=== PATIENT | male | born 1965 | race Caucasian/White ===

== ENCOUNTER → 2017-05-15 | Outpatient (CLI) | payer OTHER ==
[~2017-05-15] VITALS: Ht 177.8 cm; Wt 99.7 kg
[~2017-05-15] MED LIST: AMARYL2 M1 PO; ASPIR 8181 MG PO; ATORVASTATIN CA40 MG PO; COZAAR 50 MG TA50 M2 PO; CRESTOR40 MG PO; FLEXERIL PO; HYDROCODONE-AP1 EAC6 PO; HYDROCODONE-APA1 TA1 PO; IBUPROFEN 400400 M1; IRBESARTAN-HCT1 EAC1 PO; LISINOPRIL20 MG PO; LOFIBRA160 MG PO; MELOXICAM7.5 MG PO; METFORMIN HCL500 MG PO; NABUMETONE 750750 M1 PO; NEURONTIN 300300 M1 PO; NORCO 5-325 TA1 EACH PO; NORVASC2.5 MG PO; PIOGLITAZONE15 MG; TRAMADOL 50 MG50 MG PO; VASCEPA1 GM PO; VOLTAREN GEL 1100 G2 TOP
--- NOTE | ~2017-05-15 | HPC ---
[facility] [place] [address] PAIN MANAGEMENT CONSULTATION Name: PRUDENCE LIRAN Room #: REG RAULMack Healy.#: [id number] Admission: 05/15/17 Attend Phys: Miles Romero DO Discharge: Date of : 65 Report #: [id number] THIS REPORT FOR: //name// CC: Dg Romero HISTORY OF PRESENT ILLNESS: The patient is a pleasant 51-year-old gentleman, prior seen back in 11/2015, nearly a year and a half ago. Lumbar radiculopathy well treated with epidural injection. Returns to the pain clinic today. He had actually canceled his neurosurgical consult back in 2015 because symptoms were so well improved following the epidural injections. But notes pain has begun to recur, subjective weakness in the right leg, ongoing pain in the low back with some new pain in the right shoulder. Notes that he had moved at the end of 2016. With increased activity, packing, moving furniture and unpacking, pain has recurred. He notes pain is problematic, rating it a 7 on a VAS. Does not have a history of arthritis. BMI is 31.5 kilograms per meter squared. Blood pressure is modestly elevated at 160/99, pulse 94. He has not fallen in the last 3 months. He is hypertensive. Medication list was reconciled today. Moderate risk for opiate use, functional assessment tool is 53/70. He has tried in the past 5 months of physical therapy including walking and cycling, nonsteroidal anti-inflammatory medications and p.o. steroids with little efficacy. Again, symptoms have recurred with a right lumbar radicular symptoms predominating. PHYSICAL EXAMINATION: VITAL SIGNS: Show blood pressure 160/99, pulse 94, respiratory rate 14. MUSCULOSKELETAL: Rises from chair using armrest, modestly antalgic gait, positive straight leg raise at 30 degrees on the right. Slight decreased right hip flexion, lower extremity extension strength. IMAGING: X-rays of the lumbar spine somewhat dated from 2016 had shown no dramatic findings; however, MRI of the lumbar spine from 2016 noted moderate to severe AP narrowing at L4-L5 due to facet degenerative changes and ligamentum flavum hypertrophy. ASSESSMENT: Symptomatic lumbar radiculopathy by clinical exam and history, recurrent symptoms. RECOMMENDATIONS: We will seek authorization for epidural injection under fluoroscopy at next visit, right of midline L4-L5. Continue NSAID use, range of motion and stretching. The patient was discharged in good and stable condition after a prolonged visit, [place] [address] PAIN MANAGEMENT CONSULTATION Name: ARSALAN LIRA Room #: REG CLMack Maria Teresa#: [id number] Admission: 05/15/17 Attend Phys: Miles Romero DO Discharge: Date of : 65 Report #: [id number] greater than 30 minutes was spent reviewing medical history, interval history, physical exam, diagnostic studies and discussing therapeutic options. <ELECTRONICALLY SIGNED> By: Miles Romero DO 05/19/17 0715 0956 24 Miles Romero DO /nt
[2017-05-15 13:30] VITALS: BP 162/99
== END ==
LOC: PAIN 06:52
DX: M54.16 Radiculopathy, lumbar region (principal)

== ENCOUNTER → 2017-06-20 | Outpatient (CLI) | payer OTHER ==
[~2017-06-20] VITALS: Ht 177.8 cm; Wt 100.2 kg
--- NOTE | ~2017-06-20 | HPC ---
[facility] [address] [address] [place] [address] PAIN MANAGEMENT CONSULTATION Name: PRUDENCE LIRAN Room #: REG [facility] Monet.#: [id number] Admission: 06/20/17 Attend Phys: Miles Romero DO Discharge: Date of : 65 Report #: [id number] THIS REPORT FOR: //name// CC: Dg Romero The patient is a 51-year-old gentleman, prior seen for symptomatic lumbar radiculopathy, though he had component of both cervical and lumbar radicular symptoms at that time. He has had 2 lumbar epidural injections back in 2015. He was seen at last visit on 05/15/2017 after a 2-year hiatus. He returned with ongoing cervical and lumbar radicular symptoms. The lumbar symptoms were predominant at that time. We elected to move forward with authorization for epidural injection under fluoroscopy. In the interval since I last saw him, the back pain has somewhat gotten better with nonsteroidal anti-inflammatory medication (meloxicam). He notes he did follow up with Dr. Gallardo who has sent him back with a new consult for cervical radicular symptoms in the right arm. The patient notes pain in the neck, shoulder and right arm while present for greater than 6-8 weeks, it has been getting worse over the past several weeks. He has paresthesia going into the thumb and index finger, loss of sensation in the C6 distribution. PHYSICAL EXAMINATION: Shows cervical range of motion full with modestly positive Lhermitte's to the right. Upper extremity strength is generally preserved, though slight decreased right biceps strength compared to the left. Deep tendon reflexes show diminished biceps and brachial radialis in the right compared to the left. Tinel's is equivocal on the right and left. Hand grasp is symmetric, but subjective paresthesias noted in his thumb and index finger with loss of 2-point discrimination. DIAGNOSTIC STUDIES: Include MRI of the cervical spine from 06/10/2017, notes C5-C6 to have right paracentral disk protrusion extending inferior toward the right lateral recess suggesting small extrusion causing indentation and flattening of the ventral cord. C6-C7 similarly notes asymmetric right paracentral and lateral disk protrusion causing CSF effacement, moderate central canal stenosis and ventral cord flattening. Physical exam and MRI are concordant with right C6 radiculopathy. The patient has failed conservative therapy including meloxicam. His symptoms have been present for greater than 6 weeks. He has failed physical therapy. RECOMMENDATION: 1. We will seek authorization for cervical epidural injection under fluoroscopy at earliest possible date. [address] [address] PAIN MANAGEMENT CONSULTATION Name: ARSALAN LIRA Room #: REG [facility] Maria Teresa#: [id number] Admission: 06/20/17 Attend Phys: Miles Romero DO Discharge: Date of : 65 Report #: [id number] 2. Continue meloxicam. 3. Continue physical therapy. <ELECTRONICALLY SIGNED> By: Miles Romero DO 06/26/17937 7 1113 Miles Romero DO /isabel
[2017-06-20 09:07] VITALS: BP 152/98
== END ==
LOC: PAIN 05-26 08:31
DX: M54.16 Radiculopathy, lumbar region (principal); M54.12 Radiculopathy, cervical region

== ENCOUNTER → 2017-06-26 | Outpatient (CLI) | payer OTHER ==
[~2017-06-26] VITALS: Ht 177.8 cm; Wt 99.8 kg
--- NOTE | ~2017-06-26 | HPC ---
[facility] [place] [address] PAIN MANAGEMENT CONSULTATION Name: PRUDENCE LIRAN [facility] [id number] Admission: 06/26/17 Attend Phys: Miles Romero DO Discharge: Date of : 65 Report #: [id number] THIS REPORT FOR: //name// CC: Dg Romero DATE OF SERVICE: 06/26/2017 The patient is a pleasant 51-year-old gentleman, prior seen in the pain clinic 06/20/2017, diagnosed with symptomatic cervical radiculopathy, sought authorization for epidural injection under fluoroscopy. Returns to pain clinic today noting pain continues to be problematic. He wishes to proceed with cervical epidural injection under fluoroscopy. Rates pain a 5-6 on a VAS. Pain is primarily neck, right shoulder and arm. ASSESSMENT: Symptomatic cervical radiculopathy. PROCEDURE: Cervical epidural injection under fluoroscopy. PROCEDURE NOTE: After written and informed consent was obtained including risk of dural puncture, spinal cord trauma, paralysis and increased pain, the patient was taken to the fluoroscopy suite and placed in the prone position, with appropriate abdominal bolstering, neck was flexed, palms under the thighs. Skin was prepped with ChloraPrep. Sterile draping was applied. Skin wheal with 1% Xylocaine was raised. A 22-gauge 3-1/2 inch epidural Tuohy needle was placed via a midline approach at the C7-T1 interspace, advanced under biplanar fluoroscopy using continuous loss of resistance. With appropriate loss of resistance at the expected depth on lateral view, the glass loss of resistance syringe was disconnected. A low volume extension tubing was connected to the needle and a 5 mL syringe. Negative aspiration for cerebrospinal fluid or blood was noted. A 1 mL of Omnipaque was injected which showed spread within the epidural space on biplanar fluoroscopy. This was followed with 80 mg of triamcinolone plus 1 mL of 1.5% preservative Xylocaine. Needle was withdrawn to the interspinous ligament, 0.5 mL of Xylocaine was used to flush the needle. The needle was then completely withdrawn. The area was cleansed. Band-Aid was applied. The patient was allowed to move off the procedure table and ambulated to the recovery room, monitored for an appropriate period of time, discharged in good and stable condition. Follow up in 3 weeks for reevaluation. <ELECTRONICALLY SIGNED> By: Miles Romero DO 07/02/17 0744 1218 1302 Miles Romero DO /nt
[2017-06-26 10:03] VITALS: BP 181/114
== END | disposition home or self-care (01) ==
LOC: PAIN 07:02
DX: M54.12 Radiculopathy, cervical region (principal); G89.29 Other chronic pain; F17.210 Nicotine dependence, cigarettes, uncomplicated; Z79.82 Long term (current) use of aspirin; Z79.899 Other long term (current) drug therapy

== ENCOUNTER → 2017-07-17 | Outpatient (CLI) | payer OTHER ==
[~2017-07-17] VITALS: Ht 177.8 cm; Wt 97.7 kg
--- NOTE | ~2017-07-17 | HPC ---
[place] [address] PAIN MANAGEMENT CONSULTATION Name: PRUDENCE LIRAN [id number] Admission: 07/17/17 Attend Phys: Miles Romero DO Discharge: Date of : 65 Report #: [id number] THIS REPORT FOR: //name// CC: Dg Romero DATE OF SERVICE: 07/17/2017 The patient is a 51-year-old gentleman, prior seen 06/26/2017. We did a single cervical epidural injection at that time. Returns to pain clinic today noting that the injection afforded good relief, specifically 75% relief cervical radicular symptoms, still getting relief, but does complain of pain in the right triceps and axilla, tender hyperpathic sensation. He states it feels like there is an episodic dagger stabbing into his shoulder. He also incidentally notes some slight right hip aching sensation. He rates his pain a 3-4 on VAS. PHYSICAL EXAMINATION: Shows 51-year-old gentleman, BMI is 30.9 kilograms per meter squared. Blood pressure is a little bit elevated at 159/106, pulse 99, respirations are 18. Subjective pain score is 3-4 on VAS. Cervical range of motion is modestly limited. Positive Lhermitte's with symptoms radiating to the right shoulder, a slight decreased right triceps strength to objective exam. ASSESSMENT: Symptomatic cervical radiculopathy by clinical exam and history, good incremental improvement following single injection, but ongoing symptoms that are interfering with function. History of lumbar radiculopathy. RECOMMENDATION: We will seek authorization for repeat cervical epidural injection next visit. Continue range of motion exercise as discussed. <ELECTRONICALLY SIGNED> By: Miles Romero DO 07/21/17 0756 1524 1811 Miles Romero DO /nt
[2017-07-17 10:53] VITALS: BP 159/106
== END ==
LOC: PAIN 07:25
DX: M54.12 Radiculopathy, cervical region (principal); M54.16 Radiculopathy, lumbar region

== ENCOUNTER → 2018-05-20 | Outpatient (CLI) | payer OTHER ==
[~2018-05-20] VITALS: Ht 177.8 cm; Wt 95.3 kg
[~2018-05-20] MED LIST changes: +AMITRIPTYLINE H10 M3 PO; +MEDROLDOSEPACK PO
[2018-05-20 12:45] VITALS: BP 210/140
--- NOTE | 2018-05-20 12:46 | NUR ---
Pain Clinic Assessment: 1. History of Osteoarthritis: Not Applicable History of Rheumatoid Arthritis: Not Applicable 2. Height: 5 ft. 10 in. 177.8 cm. Weight: 210.0 lb. oz. 95.256 kg. Patient's BMI: 30.1 3. Vital Signs: BP: 210/140 Pulse: 97 Resp: 18 Temp: 02 Sat: 97 ECG Mon: 4. Pain Intensity: 8 5. Fall Risk: Dizziness: N Needs help standing or walking: N Fallen in the last 3 months: N Fall risk comments: 6. Patient on Blood Thinner: None 7. History of Hypertension: Y 8. Opioid Therapy greater than 6 weeks: N Opiate Contract Signed: 9. Risk Assessment Tool Provided: MODERATE RISK 07/19 10. Functional Assessment Tool: 11. Recreational Drug Use: Never Drug Type: Tobacco Use: Current Every Day Smoker Tobacco Type: Amount or Packs/day: How Many Years: Alcohol Use: Yes Frequency: Daily Quant: 3-4 MIX DRINKS
--- NOTE | 2018-05-22 16:49 | HPC ---
[facility] [address] [address] PAIN MANAGEMENT CONSULTATION Name: ARSALAN LIRA Room #: REG FROY Maria Teresa#: [id number] Admission: 05/20/18 Attend Phys: Jermain Zaman MD Discharge: Date of : 65 Report #: [id number] THIS REPORT FOR: //name// CC: Dg Zaman DATE OF SERVICE: 05/20/2018 CHIEF COMPLAINT: Neck pain with numbness and weakness in my left hand. FOLLOWUP HISTORY: The patient is a 52-year-old gentleman who has been followed in the Pain Clinic by Dr. Miles Romero. He has been treated for cervical radiculopathy. This is my first visit with the patient. He has been having pain, which is quite problematic. Initially, it was on his right side. He has noticed that the right-sided pain continues to be problematic, but that the left side is more problematic. He notes some weakness in his left hand. He describes it as some "paralysis in his hand." He is able to use it. Notes that it is weak and is unable to hold items. He has been evaluated by his primary doctors. States that he has a right lung, but is not fully expanded. He is being "worked up for this problem." States that he does smoke smokeless tobacco. He has been told that he has some spinal stenosis in the neck area. He does have a history of hypertension. He has not been taking his medications because of cost concerns. His blood pressure has been elevated today. ALLERGIES: No known drug allergies. CURRENT MEDICATIONS: Voltaren gel to the upper extremity four times daily, Meloxicam 7.5 mg b.i.d., amlodipine 22.5 mg, Crestor 40 mg, irbesartan/hydrochlorothiazide 300/12.5, Vascepa 1 gram, tramadol 50 mg, metformin 500 mg b.i.d., losartan 100 mg total, Amaryl 2 grams, Neurontin 300 mg b.i.d., fenofibrate 160 mg, and aspirin 81 mg. PAST MEDICAL HISTORY: Diabetes, hypertension, stomach problems, and ulcers. PAST SURGICAL HISTORY: Foot surgery, colon, and fissure. SOCIAL HISTORY: The patient worked as a property accountant. He is working at this juncture. REVIEW OF SYSTEMS: Generally noted are fatigue, night sweats, decreased appetite, eye disease, heart trouble, chest pain, palpitations, shortness of breath when lying down, loss of appetite, bowel movements, wakens at night to urinate, rash, itching, lightheadedness/dizziness, numbness/tingling sensation, nervousness, depression, and insomnia. LABORATORY DATA: MRI of the cervical spine dated 03/24/2018: [place] [address] PAIN MANAGEMENT CONSULTATION Name: ARSALAN LIRA Room #: REG CLI Maria Eugenia#: [id number] Admission: 05/20/18 Attend Phys: Jermain Zaman MD Discharge: Date of : 65 Report #: [id number] 1. C3-C4, there is minimal uncinate process spurring and mild facet hypertrophy. There is minimal foraminal narrowing. There is a tiny central protrusion measuring 0.6 cm at the base and 0.2 cm at the height. The thecal sac is 1.2 cm AP. 2. C4-C5, there is a disk osteophyte complex with also an uncinate process spurring. There is facet hypertrophy, which is greater on the left. There is [id number] left and mild right foraminal narrowing. The thecal sac is 1.2 cm. 3. C5-C6, there is a disk osteophyte complex, and uncinate process spurring. There is facet hypertrophy, which is greater on the left. There is mild canal stenosis. There is at least moderate bilateral foraminal narrowing. The thecal sac is 0.9 cm AP. 4. C6-C7, there is a disk osteophyte complex with uncinate process spurring. There is a high grade right foraminal narrowing, unclear if it is secondary to a prominent spur or a disk herniation. Herniation favored. There is a canal stenosis and moderate left foraminal narrowing. Thecal sac is 0.8 cm AP. 5. C7-T1, there is facet hypertrophy with minimal foraminal narrowing. Thecal sac is 1.2. PAIN CLINIC ASSESSMENT AND PQRS: 1. History of osteoarthritis. The patient is not being treated for osteoarthritis or rheumatoid arthritis. 2. Height 5 feet 10 inches, weight 210 pounds, BMI is 30.1. 3. Vital signs: Blood pressure 210/140, pulse 97, respiratory rate 18, room air saturation is 97%. 4. Pain intensity 11/21. 5. Fall risk. The patient has not fallen in the last 3 months. 6. Blood thinner. The patient is not on a blood thinning medication. 7. Hypertension. The patient is being treated for hypertension, but has not taken his medication for a number of days. 8. Opioid therapy greater than 6 weeks. 9. Risk assessment tool, moderate risk 07/19. 10. Functional assessment tool. 11. Recreational drug use. The patient denies use of recreational drugs. 12. Smoker. The patient is a current smoker and smokes cigarettes. He states that he is smoking smokeless cigarettes. 13. Alcohol. The patient drinks daily 3-4 mixed drinks. PHYSICAL EXAMINATION: GENERAL: The patient is a well-developed, well-nourished white male. Appears his stated age. He is alert and oriented x 3. Affect is appropriate. Speech is fluent. HEENT: Normocephalic, atraumatic. Extraocular eye muscles intact. Sclerae nonicteric. Mucous membranes are moist. NECK: Without adenopathy or JVD. The patient has pain and discomfort in the left arm. Pain radiating down into the left arm down into his hands with [facility] [address] [place] [address] PAIN MANAGEMENT CONSULTATION Name: SORAYAARSALAN Room #: REG [facility] [id number] Admission: 05/20/18 Attend Phys: Jermain Zaman MD Discharge: Date of : 65 Report #: [id number] numbness and tingling involving his fingers in approximately the C6-C7 distribution. Notes some pain in the little fingers on the left side as well. Feels that there is weakness. Unable to grasp and hold things as he could in the past. Notes also that he has pain and discomfort on the right side. This was problematic and is less so than on the left. He still notes pain and discomfort. CHEST: Generally clear to auscultation. HEART: Regular rate. S1, S2. ABDOMEN: Nontender. Bowel sounds present. EXTREMITIES: Lower extremity muscle strength is judged to be 5/5 for the major muscle groups. The patient is without significant scoliosis, kyphosis, or lordosis. IMPRESSION: 1. Cervical radiculopathy involving the left as well as the right arm. 2. Markedly elevated blood pressures. 3. Gastrointestinal problems with history of ulcers. 4. Diabetes. RECOMMENDATIONS: We discussed treatment options with the patient. The patient's blood pressure was elevated. We took it a number of times. The measure of 210/140 was noted. Previous blood pressures were 159/106. Because of the patient's significant elevated blood pressure, we would recommend that he go to the Emergency Room or see his primary physician. The patient states that he has quite a number of ____. He is reluctant to go to the Emergency Room secondary to the significant cost. We explained to the patient that his blood pressures were dangerously high. Possibility of stroke or heart problems could result. States that he has not been taking his medications. He ran out. States that he will go and get his medications today, start take his medications. He states that he has a blood pressure cuff at home. I reminded the patient that his blood pressure should stay elevated, he should seek medical treatment with his primary or go to the Emergency Room, states that he would. He complains of some pain and discomfort in his neck, shoulders with numbness and weakness. We will provide the patient with a Medrol Dosepak. He will take this in the interim. Hopefully, he noted some improvement in his pain and have less discomfort. The patient will also try amitriptyline 10 mg at bedtime and increase this as tolerated. Hopefully, the patient will notice some benefit from this with decreased pain, decreased numbness, tingling and he will return in the near future for a cervical epidural steroid injection. The patient again was reminded of the urgency to get his blood pressure under control because of the untoward problems with his heart or stroke that might occur. The patient will also monitor his blood sugars. Given the Medrol Dosepak, they can increase the amount of his baseline blood sugars. [facility] [address] [place] [address] PAIN MANAGEMENT CONSULTATION Name: ARSALAN LIRA Room #: REG FROY Morel#: [id number] Admission: 05/20/18 Attend Phys: Jermain Zaman MD Discharge: Date of : 65 Report #: [id number] We would like to thank you for letting us participate in his care. We hope he continues to improve. <ELECTRONICALLY SIGNED> By: Jermain Zaman MD 05/22/18 1649 1647 0221 Jermain Zaman MD /nt
== END ==
LOC: PAIN 07:20
DX: M54.12 Radiculopathy, cervical region (principal); E11.9 Type 2 diabetes mellitus without complications; R03.0 Elevated blood-pressure reading, without diagnosis of hypertension; K21.9 Gastro-esophageal reflux disease without esophagitis; Z79.899 Other long term (current) drug therapy

== ENCOUNTER → 2018-06-12 | Outpatient (CLI) | payer OTHER ==
[~2018-06-12] VITALS: Ht 177.8 cm; Wt 95.7 kg
[~2018-06-12] MED LIST changes: +ULTRAM 50MG TAB50 MG PO
--- NOTE | ~2018-06-12 | HPC ---
[facility] [address] [place] [address] PAIN MANAGEMENT CONSULTATION Name: ARSALAN LIRA [id number] Admission: 06/12/18 ������������������ Attend Phys: Jermain Zaman MD Discharge: ������������������ Date of : 65 Report #: [id number] THIS REPORT FOR: //name// CC: Dg Zaman DATE OF SERVICE: 06/12/2018 CHIEF COMPLAINT: Neck pain that goes down into the left shoulder and down the left arm. FOLLOWUP HISTORY: The patient is a 52-year-old gentleman who has been seen in the Pain Clinic because of cervical radiculopathy. He has undergone epidural steroid injections and gleaned benefits from these. He returns today indicating that the last injection was beneficial. He is still having some discomfort and rates it as a 7/10. He has been working on his blood pressure to get it down and maintain at reasonable level. He has noted worsening of his pain over the last 4-5 months. Notes tenderness in this area. Pain is exacerbated by moving his neck and using his arms. He has returned today for cervical epidural steroid injection. ALLERGIES: No known drug allergies. CURRENT MEDICATIONS: Voltaren gel to the upper extremities 4 times daily, Meloxicam 7.5 mg b.i.d., amlodipine 22.5 mg, Crestor 40 mg, irbesartan/hydrochlorothiazide 300/12.5, Vascepa 1 g, tramadol 50 mg, metformin 500 mg b.i.d., losartan 100 mg, Amaryl 2 grams, Neurontin 300 mg b.i.d., fenofibrate 160 mg, aspirin 81 mg. PAIN CLINIC ASSESSMENT/PQRS: 1. The patient is not being treated for osteoarthritis or rheumatoid arthritis. 2. Height 5 feet 10 inches, weight 211 pounds, BMI is 30. 3. Vital signs: Blood pressure 148/98, pulse 89, respiratory rate 16, room air saturation 97%. 4. Pain intensity 10/21. 5. Fall risk. The patient has not fallen in the last 3 months. 6. Blood thinner: The patient is not on blood thinning medication. 7. Hypertension. The patient is being treated for hypertension. 8. Opioids greater than 6 weeks. 9. Risk assessment tool, moderate reuse 07/19 for opioid use. 10. Functional assessment tool . 11. Recreational drug use. The patient denies use of recreational drugs. 12. Tobacco: The patient currently smokes tobacco or chewing tobacco. Again, we discussed the risks and benefits of tobacco use, especially chewing possibility of cancer. The patient drinks about 3 alcoholic beverages daily. [address] [address] PAIN MANAGEMENT CONSULTATION Name: ARSALAN LIRA [facility] [id number] Admission: 06/12/18 ������������������ Attend Phys: Jermain Zaman MD Discharge: ������������������ Date of : 65 Report #: [id number] PHYSICAL EXAMINATION: GENERAL: The patient is a well-developed, well-nourished white male. Appears his stated age. He is alert and oriented. His affect is appropriate. Speech is fluent. HEENT: Normocephalic, atraumatic. Extraocular eye muscles intact. Sclerae nonicteric. Mucous membranes moist. NECK: Without adenopathy or JVD. The patient has pain and discomfort in the left arm with pain that is radiating down to his left arm and involving his hands with numbness, tingling involving his fingers. This is approximately at the C6-C7 dermatomal distribution. The patient also perceives some weakness. He is unable to grasp and hold things as he has in the past. CHEST: Clear to auscultation without her bronchi. HEART: Regular rate. S1, S2. ABDOMEN: Nontender. Bowel sounds present. EXTREMITIES: Upper extremity muscle strength is judged to be 5-/5 on the right and 4/5 on the left. The patient without significant scoliosis, kyphosis or lordosis. IMPRESSION: 1. Cervical radiculopathy involving the left as well as the right arm. 2. Marked elevated blood pressure is stable today. 3. Gastroesophageal problems with history of ulcers. 4. Diabetes. RECOMMENDATIONS: We discussed treatment options with the patient. Risks and benefits of an epidural steroid injection using the cervical probes were discussed. They include but are not limited to infection, worsening pain, no improvement in pain, spinals damage with nerve paralysis. The patient elects to proceed. PROCEDURE NOTE: The patient was taken to the procedure area. He was assisted in getting on the examination table. His back was sterilely prepped at the C7-T1 interspace. This area had been sterilely prepped with Betadine solution. Fluoroscopy machine was used for anterior as well as lateral viewing. The patient's neck was sterilely prepped with Betadine. It was allowed to dry. Fluoroscopy at the C7-T1 interspace using a left paraspinous approach was undertaken. A 0.25% bupivacaine was infiltrated. A 17-gauge Tuohy with loss of resistance technique was used to gain access to the epidural space. There was no CSF, heme or paresthesia. Total of 80 mg Depo-Medrol, 40 mg triamcinolone and 2 mL of 0.25% bupivacaine was injected. The patient tolerated the procedure well. A total of 13 seconds fluoro time was used. The patient's pain was 6 at the time of discharge. He will follow up in the future as needed. A script for his medications of tramadol 90 mg 1 p.o. q.4-6h. has been written. We would [facility] [address] [place] [address] PAIN MANAGEMENT CONSULTATION Name: ARSALAN LIRA Room #: REG [facility].#: [id number] Admission: 06/12/18 ������������������ Attend Phys: Jermain Zaman MD Discharge: ������������������ Date of : 65 Report #: [id number] like to thank you for letting us participate in his care. We hope he continues to improve. ��������������������������������������������� ���������������������������������������� By: ��������������������������������������������� [id number] Jermain Zaman MD /nt
[2018-06-12 10:12] VITALS: BP 148/98
--- NOTE | 2018-06-12 10:20 | NUR ---
Pain Clinic Assessment: 1. History of Osteoarthritis: Not Applicable History of Rheumatoid Arthritis: Not Applicable 2. Height: 5 ft. 10 in. 177.8 cm. Weight: 211.0 lb. oz. 95.709 kg. Patient's BMI: 30.3 3. Vital Signs: BP: 148/98 Pulse: 89 Resp: 16 Temp: 02 Sat: 97 ECG Mon: 4. Pain Intensity: 7 5. Fall Risk: Dizziness: N Needs help standing or walking: N Fallen in the last 3 months: N Fall risk comments: 6. Patient on Blood Thinner: None 7. History of Hypertension: Y 8. Opioid Therapy greater than 6 weeks: N Opiate Contract Signed: 9. Risk Assessment Tool Provided: MODERATE RISK 07/19 10. Functional Assessment Tool: 11. Recreational Drug Use: Never Drug Type: Tobacco Use: Current Every Day Smoker Tobacco Type: Chewing Tobacco Amount or Packs/day: How Many Years: Alcohol Use: Yes Frequency: Daily Quant: 3
--- NOTE | 2018-06-12 10:20 | NUR ---
Discharged home per wheelchair at , infant, accompanied by and family. Follow-up appointments reviewed with patient.
== END | disposition home or self-care (01) ==
LOC: PAIN 06:50
DX: M54.12 Radiculopathy, cervical region (principal); G89.29 Other chronic pain; E11.9 Type 2 diabetes mellitus without complications; I10 Essential (primary) hypertension; K92.9 Disease of digestive system, unspecified; F17.210 Nicotine dependence, cigarettes, uncomplicated; Z79.899 Other long term (current) drug therapy; Z98.890 Other specified postprocedural states